=== PATIENT | female | born 1955 | race Caucasian/White ===

== ENCOUNTER 2023-11-10 06:02 | Day surgery (SDC) | payer MEDICARE, OTHER, SELFPAY ==
[2023-11-10 06:06] VITALS: BMI 17.9
[2023-11-10 06:21] VITALS: BMI 17.9
[2023-11-10 06:23] VITALS: BP 124/69
[2023-11-10] MEDS: TYLENOL 1000 MG PO (06:32)
[2023-11-10] MEDS: NORMOSOL-R 1000 IV (06:38)
[2023-11-10 08:00] VITALS: BP 102/64
--- NOTE | 2023-11-10 08:00 | OR.RPT ---
Operative Report
Operative Report
Primary Surgeon: Anna
Assisting: Jus FAY
Pre-op Diagnosis: Umbilical hernia
Post-op Diagnosis: Incarcerated umbilical hernia
Procedure Performed: Primary repair incarcerated umbilical hernia with suture
Anesthesia Type: MAC local
Specimen / Cultures: None
Estimated Blood Loss: 2cc
Complications: None immediate
Operative Findings: 5mm umbilical defect with incarcerated omentum. Defect closed with 2-0 PDS suture figure of eight.
Date of Surgery: 11/10/23
Indications: This 68F developed a symptomatic umbilical hernia and open repair was elected.
PROCEDURE: After informed consent was obtained, the patient was brought to the operative suite and placed supine on the operating table. The patient was sedated, prepped and draped in the usual sterile manner and an adequate local anesthetic was
administered using a combination of Marcaine and decadron.
A standard curvilinear umbilical incision was made, and dissection was carried down to the fascia using a combination of Metzenbaum scissors and Bovie electrocautery. The hernia was encircled by tunneling through the subcutaneous fat at the level of
the fascia using large curved Matute scissors, and the sac was then liberated from the umbilical stalk using careful blunt dissection. The sac was cleared of overlying adherent tissue, and the fascial defect was delineated, it was noted to measure
5mm. The fascia was cleared circumferentially of any adherent tissue for a distance of 2cm from the defect. The sac was then reduced into the abdominal cavity. The defect was then closed using simple interrupted 2-0 PDS sutures. The umbilicus was
then reconstructed using 3-0 Vicryl to tack the umbilical stalk to the fascia.
The wound was then irrigated with copious sterile saline, and hemostasis was obtained using Bovie electrocautery. The skin was approximated with 3-0 Vicryl deep dermal interrupted sutures and 4-0 monocryl suture in a subcuticular fashion. A pressure
dressing was then applied. All surgical counts were reported as correct.
The patient tolerated the procedure well and was taken to the PACU in stable condition.
[2023-11-10 08:15] VITALS: BP 118/65
[2023-11-10 08:30] VITALS: BP 127/65
[2023-11-10 08:45] VITALS: BP 107/56
== END 2023-11-10 09:05 | disposition home or self-care (01) ==
LOC: SDS 06:02
PROVIDERS: ATTENDING PHYSICIAN Surgery
DX: K42.0 Umbilical hernia with obstruction, without gangrene (principal)
CPT/HCPCS: 49592

== ENCOUNTER → 2023-12-02 15:09 | Outpatient (REF) | payer MEDICARE, OTHER, SELFPAY | LOC: WDC 15:09 | PROVIDERS: ATTENDING PHYSICIAN Obstetrics & Gynecology; FAMILY PHYSICIAN Student in an Organized Health Care Education/Training Program | DX: Z12.31 Encounter for screening mammogram for malignant neoplasm of breast (principal) | CPT/HCPCS: 77063; 77067 ==

== ENCOUNTER → 2024-03-02 11:02 | Outpatient (REF) | payer MEDICARE, OTHER, SELFPAY | LOC: RAD 11:02 | PROVIDERS: ATTENDING PHYSICIAN Internal Medicine Rheumatology; FAMILY PHYSICIAN Student in an Organized Health Care Education/Training Program; REFERRING PHYSICIAN Family Medicine | DX: M81.0 Age-related osteoporosis without current pathological fracture (principal) | CPT/HCPCS: 77080 ==

== ENCOUNTER → 2024-05-03 07:03 | Outpatient (REF) | payer MEDICARE, OTHER, SELFPAY | LOC: RAD 07:03 | PROVIDERS: ATTENDING PHYSICIAN Physician Assistant Medical; FAMILY PHYSICIAN Student in an Organized Health Care Education/Training Program | DX: M79.672 Pain in left foot (principal) | CPT/HCPCS: 73630 ==

== ENCOUNTER → 2025-02-15 13:23 | Outpatient (REF) | payer MEDICARE, OTHER, SELFPAY | LOC: WDC 13:23 | PROVIDERS: ATTENDING PHYSICIAN Obstetrics & Gynecology; FAMILY PHYSICIAN Student in an Organized Health Care Education/Training Program | DX: Z12.31 Encounter for screening mammogram for malignant neoplasm of breast (principal) | CPT/HCPCS: 77063; 77067 ==

== ENCOUNTER → 2025-03-04 12:46 | Outpatient (REF) | payer MEDICARE, OTHER, SELFPAY | LOC: RAD 12:46 | PROVIDERS: ATTENDING PHYSICIAN Internal Medicine Rheumatology; FAMILY PHYSICIAN Student in an Organized Health Care Education/Training Program | DX: Z13.820 Encounter for screening for osteoporosis (principal); M81.0 Age-related osteoporosis without current pathological fracture; M85.89 Other specified disorders of bone density and structure, multiple sites | CPT/HCPCS: 77080; 77081 ==